=== PATIENT | female | born 1940 | race African-American/Black ===

== ENCOUNTER 2017-08-25 22:24 | Emergency (ER) | payer OTHER ==
[~2017-08-25] VITALS: Ht 154.9 cm; Wt 66.2 kg
[~2017-08-25 22:24] MED LIST: ALLO300T PO; ALPR0.5T6 PO; CLOT15CR5 TP; CYAN10002 IJ; DIAZ5TAB4 PO; ERGO500027 PO; ESOM40CA PO; FURO40TA4 PO; GLIM2TAB2 PO; HYDR1TAB10 PO; HYDROCORTISONE28 G1 TP; LATA2.5D3 OP; LEVO25TA4 PO; METO100T2 PO; MILN50TA PO; OLME1TAB23 PO; OXYC1TAB9 PO; POTA20PA21 PO; POTA20TA82 PO; SUCR1TAB PO; ZOLP10TA4 PO
--- NOTE | 2017-08-25 22:55 | PHYS DOC ---
Past Medical History Past Medical History: Anxiety, Depression, Diabetes-Type II, Fibromyalgia, GERD , Glaucoma, Hypertension, P.U.D. Additional Past Medical Histor: GOUT Past Surgical History: Hysterectomy Additional Past Surgical Histo: PARTIAL HSTERECTOMY, HERNIA REPAIR, COLON RESEC (1 FT PER PATIENT). Alcohol Use: None Drug Use: None Adult General Chief Complaint Chief Complaint: ABDOMINAL PAIN HPI HPI Patient is a 77 year old female who presents with since this morning mild to moderate nonradiating epigastric abdominal pain, nausea no vomiting no diarrhea. Reports some constipation but no black or bloody stools. Food does not make it worse. No prior history of abdominal pain similar to this. Patient's of insulin dependent diabetic and has had a cholecystectomy and hysterectomy. Review of Systems Review of Systems Constitutional: Denies fever or chills [] Eyes: Denies change in visual acuity, redness, or eye pain [] HENT: Denies nasal congestion or sore throat [] Respiratory: Denies cough or shortness of breath [] Cardiovascular: No additional information not addressed in HPI [] GI: Denies abdominal pain, nausea, vomiting, bloody stools or diarrhea [] : Denies dysuria or hematuria [] Musculoskeletal: Denies back pain or joint pain [] Integument: Denies rash or skin lesions [] Neurologic: Denies headache, focal weakness or sensory changes [] Endocrine: Denies polyuria or polydipsia [ Review systems are negative except as mentioned in history of present illness Current Medications Current Medications Current Medications Medications (Trade) Dose Ordered Sig/Ayala Start Time Stop Time Status Last Admin Dose Admin Famotidine (Pepcid) 20 mg 1X ONCE 08/25/17 23:30 08/25/17 23:31 DC 08/25/17 23:38 20 MG Hydromorphone HCl (Dilaudid) 0.5 mg 1X ONCE 08/25/17 23:15 08/25/17 23:16 DC 08/25/17 23:38 0.5 MG Info (Do NOT chart on this entry -- for MONITORING) 1 each PRN DAILY PRN 08/25/17 23:45 08/27/17 23:44 Iohexol (Omnipaque 300 Mg/ml) 75 ml 1X ONCE 08/25/17 23:45 08/25/17 23:46 DC Ondansetron HCl (Zofran) 4 mg 1X ONCE 08/25/17 23:15 08/25/17 23:16 DC 08/25/17 23:39 4 MG Sodium Chloride 500 ml @ 500 mls/hr 1X ONCE 08/25/17 23:15 08/26/17 00:14 DC 08/25/17 23:40 500 MLS/HR Allergies Allergies Allergies Coded Allergies Type Severity Reaction Last Updated Verified codeine Allergy Intermediate 07/04/17 Yes Physical Exam Physical Exam Constitutional: Well developed, well nourished, no acute distress, non-toxic appearance. [] HENT: Normocephalic, atraumatic, bilateral external ears normal, oropharynx moist, no oral exudates, nose normal. [] Eyes: PERRLA, EOMI, conjunctiva normal, no discharge. [] Neck: Normal range of motion, no tenderness, supple, no stridor. [] Cardiovascular:Heart rate regular rhythm, no murmur [] Lungs & Thorax: Bilateral breath sounds clear to auscultation [] Abdomen: Bowel sounds normal, soft, mild to moderate tenderness, no masses, no pulsatile masses. [] Skin: Warm, dry, no erythema, no rash. [] Back: No tenderness, no CVA tenderness. [] Extremities: No tenderness, no cyanosis, no clubbing, ROM intact, no edema. [] Neurologic: Alert and oriented X 3, normal motor function, normal sensory function, no focal deficits noted. [] Psychologic: Affect normal, judgement normal, mood normal. [] Current Patient Data Vital Signs Vital Signs Date Time Temp Pulse Resp B/P (MAP) Pulse Ox O2 Delivery O2 Flow Rate FiO2 08/26/17 01:14 80 20 124/58 (80) 97 Room Air 08/25/17 22:53 97.9 97.9 Lab Values Laboratory Tests Test 08/25/17 23:12 08/26/17 00:56 White Blood Count 7.9 x10^3/uL (4.0-11.0) Red Blood Count 4.24 x10^6/uL (3.50-5.40) Hemoglobin 12.6 g/dL (12.0-15.5) Hematocrit 38.0 % (36.0-47.0) Mean Corpuscular Volume 90 fL (79-100) Mean Corpuscular Hemoglobin 30 pg (25-35) Mean Corpuscular Hemoglobin Concent 33 g/dL (31-37) Red Cell Distribution Width 15.7 % (11.5-14.5) H Platelet Count 186 x10^3/uL (140-400) Neutrophils (%) (Auto) 64 % (31-73) Lymphocytes (%) (Auto) 26 % (24-48) Monocytes (%) (Auto) 5 % (0-9) Eosinophils (%) (Auto) 4 % (0-3) H Basophils (%) (Auto) 1 % (0-3) Neutrophils # (Auto) 5.0 x10^3uL (1.8-7.7) Lymphocytes # (Auto) 2.1 x10^3/uL (1.0-4.8) Monocytes # (Auto) 0.4 x10^3/uL (0.0-1.1) Eosinophils # (Auto) 0.3 x10^3/uL (0.0-0.7) Basophils # (Auto) 0.0 x10^3/uL (0.0-0.2) Sodium Level 140 mmol/L (136-145) Potassium Level 4.6 mmol/L (3.5-5.1) Chloride Level 97 mmol/L (98-107) L Carbon Dioxide Level 36 mmol/L (21-32) H Anion Gap 7 (6-14) Blood Urea Nitrogen 41 mg/dL (7-20) H Creatinine 1.5 mg/dL (0.6-1.0) H Estimated GFR (Cockcroft-Gault) 40.5 BUN/Creatinine Ratio 27 (6-20) H Glucose Level 113 mg/dL (70-99) H Calcium Level 9.7 mg/dL (8.5-10.1) Total Bilirubin 0.2 mg/dL (0.2-1.0) Aspartate Amino Transferase (AST) 60 U/L (15-37) H Alanine Aminotransferase (ALT) 49 U/L (14-59) Alkaline Phosphatase 94 U/L (46-116) Troponin I Quantitative < 0.017 ng/mL (0.000-0.055) Total Protein 7.7 g/dL (6.4-8.2) Albumin 3.5 g/dL (3.4-5.0) Albumin/Globulin Ratio 0.8 (1.0-1.7) L Lipase 262 U/L (73-393) Urine Collection Type Unknown Urine Color Yellow Urine Clarity Clear Urine pH 7.5 Urine Specific [place] 1.010 Urine Protein Negative mg/dL (NEG-TRACE) Urine Glucose (UA) Negative mg/dL (NEG) Urine Ketones (Stick) Negative mg/dL (NEG) Urine Blood Negative (NEG) Urine Nitrite Negative (NEG) Urine Bilirubin Negative (NEG) Urine Urobilinogen Dipstick 1.0 mg/dL (0.2 mg/dL) Urine Leukocyte Esterase Small (NEG) Urine RBC 0 /HPF (0-2) Urine WBC 5-10 /HPF (0-4) Urine Squamous Epithelial Cells Few /LPF Urine Bacteria 0 /HPF (0-FEW) Urine Mucus Slight /LPF Laboratory Tests 08/25/17 23:12 Laboratory Tests 08/25/17 23:12 EKG EKG EKG[ normal sinus rhythm rate of 83 no STEMI QTC normal my interpretation] Radiology/Procedures Radiology/Procedures Chest x-ray: Negative no acute pulmonary or cardiac abnormality seen my interpretation CT scan abdomen and pelvis: [] Course & Med Decision Making Course & Med Decision Making Pertinent Labs and Imaging studies reviewed. (See chart for details) []1:30 AM reexamination patient feels improved and is resting comfortably. Plan to place her on Prilosec and Carafate and recommend close follow-up in the next 2-3 days with her primary care physician. Dragon Disclaimer Dragon Disclaimer This electronic medical record was generated, in whole or in part, using a voice recognition dictation system. Departure Departure Impression: Primary Impression: Abdominal pain, acute, epigastric Disposition: 01 HOME, SELF-CARE Condition: IMPROVED Referrals: ALEXIS WILSON MD (PCP) Patient Instructions: Abdominal Pain Additional Instructions: Follow-up with her PCP in 2-3 days. Scripts Sucralfate (CARAFATE) 1 Gm Tablet 1 TAB PO QID, #60 TAB 0 Refills Prov: MATTEO BEACH MD 08/26/17 Omeprazole Magnesium (PRILOSEC OTC) 20 Mg Tablet. 20 MG PO DAILY, #10 TAB Prov: MATTEO BEACH MD 08/26/17 MATTEO BEACH MD Aug 25, 2017 22:55
[2017-08-25] MEDS ORDERED: ONDANSETRON PF 4 MG/2 ML VIAL. IV ONE (23:15)
[2017-08-25] MEDS ORDERED: HYDROmorphone 2 MG/ML VIAL IV ONE (23:15)
[2017-08-25] MEDS ORDERED: IV NORMAL SALINE 500ML BAG 500 ML IV ONE (23:15)
[2017-08-25 23:24] LABS: BASO % 1 % (0-3); EOS % 4 % (0-3); HEMOGLOBIN 12.6 g/dL (12.0-15.5); LYMPH # 2.1 x10^3/uL (1.0-4.8); LYMPH % 26 % (24-48); MEAN CORPUSCULAR HEMOGLOBIN 30 pg (25-35); MEAN CORPUSCULAR HGB CONC 33 g/dL (31-37); MEAN CORPUSCULAR VOLUME 90 fL (79-100); MONO % 5 % (0-9); NEUT % 64 % (31-73); PLATELET COUNT 186 x10^3/uL (140-400); RED BLOOD COUNT 4.24 x10^6/uL (3.50-5.40); RED CELL DISTRIBUTION WIDTH 15.7 % (11.5-14.5); WHITE BLOOD COUNT 7.9 x10^3/uL (4.0-11.0)
[2017-08-25] MEDS ORDERED: FAMOTIDINE 20 MG/2 ML VIAL IVP ONE (23:30)
[2017-08-25] MEDS ORDERED: CONTRAST GIVEN MC PRN (23:45)
[2017-08-25] MEDS ORDERED: IOHEXOL 300 MG/ML 75 ML VIAL IV ONE (23:45)
[2017-08-25 23:51] LABS: CALCIUM 9.7 mg/dL (8.5-10.1); CREATININE 1.5 mg/dL (0.6-1.0); GFR 40.5; POTASSIUM 4.6 mmol/L (3.5-5.1)
[2017-08-25 23:58] LABS: ALBUMIN 3.5 g/dL (3.4-5.0); ALBUMIN/GLOBULIN RATIO 0.8 (1.0-1.7); TOTAL BILIRUBIN 0.2 mg/dL (0.2-1.0); TOTAL PROTEIN 7.7 g/dL (6.4-8.2)
--- NOTE | 2017-08-26 00:57 | RAD ---
EXAM: Abdomen and pelvis CT without intravenous contrast. HISTORY: 77-year-old female with epigastric abdominal pain. TECHNIQUE: Computed tomographic images of the abdomen and pelvis were obtained without contrast. Multiplanar reformatting was performed. PQRS compliance statement: One or more of the following individualized dose reduction techniques were utilized for this examination: 1. Automated exposure control 2. Adjustment of the mA and/or kV according to patient size 3. Use of iterative reconstruction technique COMPARISON: None. FINDINGS: The lung bases demonstrate no acute finding. Several subcentimeter, noncalcified pulmonary nodules are seen within the visualized lung bases, largest measuring 4 mm. Findings of prior granulomatous disease also seen. Detailed evaluation of the intra-abdominal and pelvic organs and vascular structures is limited secondary to lack of IV contrast. Within these limitations, the liver, pancreas, adrenal glands and bilateral kidneys demonstrate no focal abnormality. The gallbladder is surgically absent. Calcifications are present with the spleen, consistent with prior granulomatous disease. The GI tract demonstrates no dilated bowel loops to suggest obstruction. The stomach is moderately distended with food material. Formed fecal material is present within the distal colon. The urinary bladder is grossly unremarkable. Uterus appears surgically absent. No adnexal mass is seen. No intra-abdominal or pelvic free fluid, free air or significant lymphadenopathy is seen. Aorta is normal in caliber, with atherosclerotic calcification present. Overlying soft tissues and visualized osseous structures demonstrate no acute or suspicious finding. Degenerative changes are seen throughout the spine, with chronic appearing endplate changes present. IMPRESSION: 1. No acute intra-abdominal or pelvic process seen on this noncontrast study. 2. Several subcentimeter pulmonary nodules are seen within the visualized lung bases. Recommend follow-up per Fleischner criteria. Fleischner Society recommendations for solid nodules (Radiology 2017): Single: In a low risk patient: <6mm - No routine follow up. >6-8mm-CT at 6-12 months, then consider CT at 18-24 months. >8mm- consider CT at 3 months, PET/CT or tissue sampling. In a high risk patient (history of smoking or other known risk factors): <6mm -optional CT at 12 months. >6-8mm-CT at 6-12 months, then CT at 18-24 months. >8mm-consider CT at 3 months, PET/CT or tissue sampling. Multiple: In a low risk patient: <6mm - No routine follow up. >6-8mm-CT at 3-6 months, then consider CT at 18-24 months. >8mm-CT at 3-6 months, then consider CT at 18-24 months. In a high risk patient (history of smoking or other known risk factors): <6mm -optional CT at 12 months. >6-8mm-CT at 3-6 months, then CT at 18-24 months. >8mm-CT in 3-6 months, then at 18-24 months. Electronically signed by: Tia Bowen MD (08/26/2017 12:54 AM) [facility]
[2017-08-26 01:04] LABS: BILIRUBIN,URINE NEGATIVE (NEG); GLUCOSE,URINE NEGATIVE (NEG); NITRITE,URINE NEGATIVE (NEG); PH,URINE 7.5; PROTEIN,URINE NEGATIVE (NEG-TRACE)
[2017-08-26 01:19] LABS: BACTERIA,URINE 0 /HPF (0-FEW); RBC,URINE 0 /HPF (0-2); SQUAMOUS EPITHELIAL CELL,UR FEW /LPF
[2017-08-26 01:30] VITALS: BP 124/58
[2017-08-26] MEDS ORDERED: OMEP20TA63 PO (01:34)
[2017-08-26] MEDS ORDERED: SUCR1TAB35 PO (01:34)
--- NOTE | 2017-08-26 07:58 | RAD ---
CHEST AP ONLY Clinical Indication: cough abd pain Comparison: Chest radiograph dated 01/22/2014 Findings: Stable lung volume with slight elevation of the right hemidiaphragm. Remote granulomatous disease. No focal consolidation. Stable pulmonary vasculature. No pleural effusion or pneumothorax. The cardiomediastinal silhouette is normal. Stable atherosclerotic thoracic aorta. No acute osseous abnormality. IMPRESSION: No acute cardiopulmonary process.
--- NOTE | 2017-08-26 12:10 | EKG ---
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
== END 2017-08-26 01:42 | disposition home or self-care (01) ==
LOC: ER 22:24
DX: R10.13 Epigastric pain (principal); R11.0 Nausea; K59.00 Constipation, unspecified; F41.9 Anxiety disorder, unspecified; F32.9 Major depressive disorder, single episode, unspecified; E11.39 Type 2 diabetes mellitus with other diabetic ophthalmic complication; H40.9 Unspecified glaucoma; M79.7 Fibromyalgia; K21.9 Gastro-esophageal reflux disease without esophagitis; I10 Essential (primary) hypertension; M10.9 Gout, unspecified; Z90.711 Acquired absence of uterus with remaining cervical stump; Z79.4 Long term (current) use of insulin; Z90.49 Acquired absence of other specified parts of digestive tract; Z88.5 Allergy status to narcotic agent
CPT/HCPCS: 36415; 71010; 74176; 80053; 81001; 83690; 84484; 85025; 87086; 93005; 96361; 96374; 96375; 99285; J1170; J2405; J7040; S0028

== ENCOUNTER 2018-03-18 09:21 | Emergency (ER) | payer OTHER ==
[2018-03-18 10:16] LABS: BILIRUBIN,URINE NEGATIVE (NEG); CLARITY,URINE CLEAR; COLOR,URINE YELLOW; GLUCOSE,URINE NEGATIVE (NEG); NITRITE,URINE NEGATIVE (NEG); PROTEIN,URINE NEGATIVE (NEG-TRACE); UROBILINOGEN,URINE 0.2 mg/dL (0.2 mg/dL)
[2018-03-18 10:37] LABS: SQUAMOUS EPITHELIAL CELL,UR FEW /LPF
[2018-03-18 10:38] LABS: BACTERIA,URINE FEW /HPF (0-FEW); RBC,URINE 0 /HPF (0-2)
[2018-03-18 10:43] LABS: ADD MAN DIFF? NO
[2018-03-18 10:45] LABS: BASO % 1 % (0-3); EOS # 0.2 x10^3/uL (0.0-0.7); EOS % 2 % (0-3); HEMOGLOBIN 11.6 g/dL (12.0-15.5); LYMPH # 2.9 x10^3/uL (1.0-4.8); LYMPH % 37 % (24-48); MEAN CORPUSCULAR HEMOGLOBIN 30 pg (25-35); MEAN CORPUSCULAR HGB CONC 34 g/dL (31-37); MEAN CORPUSCULAR VOLUME 88 fL (79-100); MONO # 0.5 x10^3/uL (0.0-1.1); MONO % 6 % (0-9); NEUT # 4.3 x10^3uL (1.8-7.7); NEUT % 55 % (31-73); PLATELET COUNT 188 x10^3/uL (140-400); RED BLOOD COUNT 3.85 x10^6/uL (3.50-5.40); RED CELL DISTRIBUTION WIDTH 15.5 % (11.5-14.5); WHITE BLOOD COUNT 7.9 x10^3/uL (4.0-11.0)
[2018-03-18] MEDS: ONDANSETRON PF 4 MG/2 ML VIAL. IV (10:47)
[2018-03-18] MEDS: fentaNYL PF VIAL 100 MCG/2 ML VIAL IV (10:48)
[2018-03-18 10:55] LABS: INR 1.1 (0.8-1.1); PROTHROMBIN TIME PATIENT 13.3 SEC (11.7-14.0)
[2018-03-18 10:58] LABS: ANION GAP 8 (6-14); BLOOD UREA NITROGEN 31 mg/dL (7-20); BUN/CREATININE RATIO 18 (6-20); CALCIUM 8.7 mg/dL (8.5-10.1); CARBON DIOXIDE 27 mmol/L (21-32); CHLORIDE 99 mmol/L (98-107); CREATININE 1.7 mg/dL (0.6-1.0); GLUCOSE 105 mg/dL (70-99); POTASSIUM 4.1 mmol/L (3.5-5.1); SODIUM 134 mmol/L (136-145)
[2018-03-18 11:04] LABS: ALBUMIN 3.9 g/dL (3.4-5.0); ALBUMIN/GLOBULIN RATIO 1.2 (1.0-1.7); TOTAL BILIRUBIN 0.5 mg/dL (0.2-1.0); TOTAL PROTEIN 7.1 g/dL (6.4-8.2)
[2018-03-18 11:05] LABS: ALK PHOS 82 U/L (46-116); ALT (SGPT) 10 U/L (14-59); AST (SGOT) 13 U/L (15-37); LIPASE 259 U/L (73-393); MAGNESIUM 2.1 mg/dL (1.8-2.4)
[2018-03-18 11:06] LABS: TROPONINI < 0.017 ng/mL (0.000-0.055)
[2018-03-18 11:11] LABS: THYROID STIM HORMONE (TSH) 3.814 uIU/mL (0.358-3.74)
[2018-03-18 11:14] LABS: CKMB INDEX 0.6 % (0-4); CKMB MASS 0.6 ng/mL (0.0-3.6); CREATINE KINASE 96 U/L (26-192)
[2018-03-18 11:14] LABS: NT-PRO BNP 374 pg/mL (0-449)
[2018-03-18] MEDS ORDERED: IV NORMAL SALINE 1000ML BAG 1,000 ML IV (11:15)
[2018-03-18] MEDS: IV NORMAL SALINE 1000ML BAG 500 ML IV (11:28)
== END 2018-03-18 12:12 | disposition home or self-care (01) ==
LOC: ER 09:21
DX: G89.29 Other chronic pain (principal); M79.7 Fibromyalgia; N39.0 Urinary tract infection, site not specified; F41.9 Anxiety disorder, unspecified; K21.9 Gastro-esophageal reflux disease without esophagitis; I10 Essential (primary) hypertension; Z88.5 Allergy status to narcotic agent; Z90.710 Acquired absence of both cervix and uterus
CPT/HCPCS: 36415; 71045; 80053; 81001; 82553; 83690; 83735; 83880; 84443; 84484; 85025; 85610; 93005; 96374; 96375; 99285-25; J2405; J3010; J7030

== ENCOUNTER 2019-05-03 12:10 | Emergency (ER) | payer MEDICARE, OTHER ==
[~2019-05-03] VITALS: Ht 162.6 cm; Wt 59.9 kg
[2019-05-03 12:10] VITALS: BP 109/77
[~2019-05-03 12:10] MED LIST changes: +HYDR-3164 PO; -METO100T2 PO; +METO100T7 PO; +NITR100C62 PO; +OMEP20TA63 PO; +OXYC-411 PO; -OXYC1TAB9 PO; +SUCR1TAB35 PO
[2019-05-03] MEDS ORDERED: NEOMY/BACITR/POLYMYXIN OINT PACKET. TP ONE (12:45)
[2019-05-03] MEDS ORDERED: DIPHTH,PERTUSS(ACELL),TET TOX 0.5 ML DISP.SYRIN. VAX IM ONE (12:45)
--- NOTE | 2019-05-03 13:09 | PHYS DOC ---
Past Medical History Past Medical History: Anxiety, Depression, Fibromyalgia, GERD, Glaucoma, Hypertension, P.U.D., TIA Additional Past Medical Histor: GOUT, thryoid disease, lower ext edema Past Surgical History: Hysterectomy Additional Past Surgical Histo: PARTIAL HSTERECTOMY, HERNIA REPAIR, COLON RESEC (1 FT PER PATIENT). Alcohol Use: None Drug Use: None Adult General Chief Complaint Chief Complaint: TOE PROBLEM HPI HPI Patient is a 79 year old AA female who presents to the ER with complaints of R great toe pain and bleeding. Pt states that on April, she accidentally kicked a piece of exercise equipment at her daughters and injured her toe. She denies any changes in sensation or limited ROM. Pt states the area began to bleed again when she removed the bandage earlier today. She is unsure of when her last tetanus shot was. Review of Systems Review of Systems Constitutional: Denies fever or chills [] Musculoskeletal: Denies back pain or joint pain [] Integument: Denies rash; see HPI Neurologic: Denies headache, focal weakness or sensory changes [] Current Medications Current Medications Current Medications Medications (Trade) Dose Ordered Sig/Ayala Start Time Stop Time Status Last Admin Dose Admin Diphtheria/ Tetanus/Acell Pertussis (Boostrix) 0.5 ml ONCE ONCE 05/03/19 12:45 05/03/19 12:46 DC 05/03/19 13:20 0.5 ML Neomycin/ Polymyxin/ Bacitracin (Triple Antibiotic Ointment) 1 pkt 1X ONCE 05/03/19 12:45 05/03/19 12:46 DC 05/03/19 13:20 1 PKT Allergies Allergies Allergies Coded Allergies Type Severity Reaction Last Updated Verified codeine Allergy Intermediate 07/04/17 Yes Physical Exam Physical Exam Constitutional: Well developed, well nourished, no acute distress, non-toxic appearance. [] HENT: Normocephalic, atraumatic, bilateral external ears normal, oropharynx moist, no oral exudates, nose normal. [] Eyes: conjunctiva normal, no discharge. [] Neck: Normal range of motion no stridor. [] Cardiovascular:Heart rate regular rhythm Lungs & Thorax: Respirations even and unlabored, no retractions, no respiratory distress Skin: Warm, dry, no erythema, no rash; abrasion noted to medial R great toe no active bleeding Extremities: R great toe No bony tenderness, no cyanosis, ROM intact, no edema. [] Neurologic: Alert and oriented X 3, normal motor function, normal sensory function, no focal deficits noted. [] Psychologic: Affect normal, judgement normal, mood normal. [] Current Patient Data Vital Signs Vital Signs Date Time Temp Pulse Resp B/P (MAP) Pulse Ox O2 Delivery O2 Flow Rate FiO2 05/03/19 12:10 98.6 78 18 109/77 (88) 96 Room Air 98.6 EKG EKG [] Radiology/Procedures Radiology/Procedures [] Course & Med Decision Making Course & Med Decision Making Pertinent Labs and Imaging studies reviewed. (See chart for details) [] Dragon Disclaimer Dragon Disclaimer This electronic medical record was generated, in whole or in part, using a voice recognition dictation system. Departure Departure Impression: Primary Impression: Abrasion, toe w/o infection Additional Impression: Need for DTaP vaccination Disposition: HOME, SELF-CARE Condition: STABLE Referrals: ALEXIS WILSON MD (PCP) Patient Instructions: Abrasion, [id number], VIS, Tetanus, Diphtheria (Td); Tetanus, Diphtheria, Pertussis (Tdap) - CDC Additional Instructions: Keep area clean and dry. Apply antibiotic ointment and a clean bandage twice daily. Follow up with PCP as needed, return to ER if symptoms worsen. Problem Qualifiers BETZAIDA VALDEZ APRN May 03, 2019 13:09
== END 2019-05-03 13:30 | disposition home or self-care (01) ==
LOC: ER 12:10
DX: S90.411A Abrasion, right great toe, initial encounter (principal); F41.9 Anxiety disorder, unspecified; F32.9 Major depressive disorder, single episode, unspecified; K21.9 Gastro-esophageal reflux disease without esophagitis; I10 Essential (primary) hypertension; Z90.710 Acquired absence of both cervix and uterus; Z86.73 Personal history of transient ischemic attack (TIA), and cerebral infarction without residual deficits; Z88.5 Allergy status to narcotic agent; W22.8XXA Striking against or struck by other objects, initial encounter; Y93.89 Activity, other specified; Y92.89 Other specified places as the place of occurrence of the external cause; Y99.8 Other external cause status
CPT/HCPCS: 90471; 90715; 99283

== ENCOUNTER 2019-08-07 16:07 | Inpatient (IN) | payer MEDICARE, OTHER ==
[~2019-08-07] VITALS: Ht 154.9 cm; Wt 71.9 kg
[~2019-08-07 16:07] MED LIST changes: -GLIM2TAB2 PO; +GLIM2TAB3 PO
[2019-08-07 18:00] VITALS: BP 112/62
[2019-08-07] MEDS ORDERED: ALBUTEROL SULFATE 2.5 MG/3 ML NEBU. NEB PRN (19:15)
[2019-08-07] MEDS ORDERED: CLOTRIMAZOLE/BETAMETH 1%-0.05% TOPICAL CREAM 15GM TUBE. TP PRN (19:45)
[2019-08-07] MEDS ORDERED: SUCRALFATE 1 GM TABLET. PO PRN (19:45)
[2019-08-07] MEDS ORDERED: 0.9 % SODIUM CHLORIDE 10 ML DISP.SYRIN. IV PRN (20:00)
[2019-08-07] MEDS: LATANOPROST 0.005% OPHTH SOLUTION 2.5ML BOTTLE. OU SCH (20:54)
[2019-08-07] MEDS: PREGABALIN 75 MG CAPSULE PO SCH (20:55)
[2019-08-07] MEDS: ATORVASTATIN CALCIUM 20 MG TABLET PO SCH (20:56)
[2019-08-07] MEDS: PROPRANOLOL 40 MG TABLET. PO SCH (20:56)
[2019-08-07] MEDS: oxyCODONE/APAP 10/325 1 TAB TABLET PO PRN (20:57)
[2019-08-07] MEDS ORDERED: FUROSEMIDE 40 MG/4 ML VIAL. IVP SCH (21:00)
[2019-08-07] MEDS: IPRATRPIUM/ALBUTEROL 0.5/2.5MG 3 ML NEBU. NEB SCH (21:18)
--- NOTE | 2019-08-07 21:21 | EKG ---
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
--- NOTE | 2019-08-07 21:38 | RAD ---
VENOUS LOWER EXT BILATERAL History: Bilateral leg pain and swelling. Comparison: None. Discussion: Multiple longitudinal and transverse high resolution real-time images of the venous system of bilateral lower extremity were obtained with color and Doppler sampling. The common femoral, superficial femoral, popliteal and proximal calf veins are all patent and demonstrate normal flow and compressibility. Normal respiratory phasicity and augmentation is present. Lateral origin of the right greater saphenous vein. Left popliteal fossa cyst measures 4.9 x 1.4 x 0.8 cm. Impression: 1. No evidence of deep vein thrombosis. Electronically signed by: Lee Guerrero DO (08/07/2019 9:35 PM) [facility]
[2019-08-07 22:21] VITALS: BP 107/70
[2019-08-07] MEDS: ENOXAPARIN 30 MG/0.3 ML SYRINGE. SQ SCH (22:25)
[2019-08-07 22:35] LABS: ALBUMIN/GLOBULIN RATIO 1.1 (1.0-1.7); CALCIUM 9.4 mg/dL (8.5-10.1); CREATININE 1.8 mg/dL (0.6-1.0); GFR 32.7; POTASSIUM 3.7 mmol/L (3.5-5.1); TOTAL BILIRUBIN 0.4 mg/dL (0.2-1.0); TOTAL PROTEIN 7.7 g/dL (6.4-8.2)
[2019-08-08] MEDS ORDERED: ATOR20TA58 PO (00:46)
[2019-08-08] MEDS ORDERED: FLUT16SP NS (00:46)
[2019-08-08] MEDS ORDERED: PROP10DR3 EACHEYE (00:46)
[2019-08-08] MEDS ORDERED: ERGO500027 PO (00:46)
[2019-08-08] MEDS ORDERED: LEVO75TA5 PO (00:46)
[2019-08-08] MEDS ORDERED: PROP40TA PO (00:46)
[2019-08-08] MEDS ORDERED: OXYC1TAB22 PO (00:46)
[2019-08-08] MEDS ORDERED: ASPI325T8 PO (00:46)
[2019-08-08] MEDS ORDERED: POTA20TA82 PO (00:46)
[2019-08-08] MEDS ORDERED: PREG75CA PO (00:46)
[2019-08-08] MEDS ORDERED: FURO40TA4 PO (00:46)
[2019-08-08 03:11] VITALS: BP 114/59
[2019-08-08 04:37] LABS: BASO % 0 % (0-3); EOS # 0.2 x10^3/uL (0.0-0.7); EOS % 3 % (0-3); HEMATOCRIT 33.8 % (36.0-47.0); HEMOGLOBIN 11.2 g/dL (12.0-15.5); LYMPH # 3.1 x10^3/uL (1.0-4.8); LYMPH % 49 % (24-48); MEAN CORPUSCULAR HEMOGLOBIN 28 pg (25-35); MEAN CORPUSCULAR HGB CONC 33 g/dL (31-37); MEAN CORPUSCULAR VOLUME 85 fL (79-100); MONO # 0.5 x10^3/uL (0.0-1.1); MONO % 8 % (0-9); NEUT # 2.6 x10^3/uL (1.8-7.7); NEUT % 40 % (31-73); PLATELET COUNT 157 x10^3/uL (140-400); RED BLOOD COUNT 3.96 x10^6/uL (3.50-5.40); WHITE BLOOD COUNT 6.4 x10^3/uL (4.0-11.0)
[2019-08-08 05:25] LABS: CALCIUM 8.9 mg/dL (8.5-10.1); CREATININE 1.6 mg/dL (0.6-1.0); GFR 37.4; POTASSIUM 3.6 mmol/L (3.5-5.1)
[2019-08-08] MEDS: LEVOTHYROXINE 75 MCG TABLET PO SCH (06:06)
[2019-08-08 07:00] VITALS: BP 98/49
--- NOTE | 2019-08-08 07:55 | RAD ---
EXAM: AP View of the chest DATE: 08/07/2019 9:13 PM INDICATION: Shortness of breath, bilateral lower extremity swelling COMPARISON: 03/18/2018, 08/25/2017 FINDINGS: Heart is mildly enlarged. Atherosclerotic calcifications of the aorta are seen. Right infrahilar and minimal bibasilar airspace opacities may represent atelectasis although developing consolidation would have similar appearance. No pleural effusion or pneumothorax. Right glenohumeral joint osteoarthritis. Electronically signed by: Torres Del Castillo MD (08/08/2019 7:52 AM) [facility] [place]
[2019-08-08] MEDS ORDERED: FLU VAX QS 2019-20 (36MOS+)/PF 0.5 ML SYRINGE. VAX IM ONE (08:00)
[2019-08-08] MEDS: IPRATRPIUM/ALBUTEROL 0.5/2.5MG 3 ML NEBU. NEB SCH ×4 (08:55→20:30)
[2019-08-08] MEDS: FLUTICASONE 50MCG/NASAL SPRAY 16GM BOTTLE. NS SCH (09:00)
[2019-08-08] MEDS: PANTOPRAZOLE 40 MG TABLET.DR. PO SCH (09:50)
[2019-08-08] MEDS: ASPIRIN 325 MG TABLET PO SCH (09:52)
[2019-08-08] MEDS: PREGABALIN 75 MG CAPSULE PO SCH ×2 (09:52→21:06)
[2019-08-08] MEDS: ALLOPURINOL 300 MG TABLET. PO SCH (09:53)
[2019-08-08] MEDS: PROPRANOLOL 40 MG TABLET. PO SCH ×3 (09:57→21:06)
--- NOTE | 2019-08-08 09:57 | PDOC ---
Provider Note Provider Note pt seen.H&P to be dictated. ALEXIS WILSON MD Aug 08, 2019 09:57
[2019-08-08] MEDS ORDERED: POTASSIUM CHLORIDE 20 MEQ TABLET.ER. PO ONE (10:00)
[2019-08-08 11:00] VITALS: BP 129/65
[2019-08-08] MEDS: oxyCODONE/APAP 10/325 1 TAB TABLET PO PRN (11:53)
--- NOTE | 2019-08-08 11:56 | NUR ---
pt states that she would like to wait to receive her flu shot until she leaves.
--- NOTE | 2019-08-08 13:27 | RAD ---
EXAM: CT Chest without IV contrast CLINICAL HISTORY: Lung infiltrate COMPARISON: Chest radiograph 08/07/2019 TECHNIQUE: CT of the chest without intravenous contrast. Axial, coronal and sagittal reformatted images were generated. ---PQRS compliance statement - One or more of the following individualized dose reduction techniques were utilized for this study: 1. Automated exposure control 2. Adjustment of the mA and/or kV according to patient size 3. Use of iterative reconstruction technique--- FINDINGS: Lack of intravenous contrast limits evaluation of solid organs, vasculature, and lymph nodes. Chest: Heart is not enlarged. No pericardial effusion. Ascending aorta measures 3.7 cm in diameter Calcified mediastinal and right hilar lymph nodes are seen. Within the constraints of this noncontrast examination, no thoracic lymphadenopathy. No pleural effusion or pneumothorax. Mild groundglass opacities in the infrahilar left lower lobe and lingula are nonspecific and may represent atelectasis. Several small 3-4 mm lung nodules are seen bilaterally for example right lower lobe (series 2 image 25), left lower lobe series 2 image 26) Visualized Upper abdomen: Cholecystectomy clips are seen. Calcified granuloma within the liver and spleen. Bones: Osseous structures are unremarkable. IMPRESSION: 1. Vague groundglass opacities are seen particularly prominent in the left lower lobe and lingula. Differential remains broad including infectious/inflammatory process although atelectasis is a primary consideration. 2. Bilateral <4 mm lung nodules. Per Fleischner Society guidelines for incidentally found solid nodules measuring less than 6 mm, no follow-up is necessary if patient is considered at low risk for lung cancer. If patient is considered to be at high risk, such as with history of smoking, then CT follow-up in about 12 months can be considered. Electronically signed by: Torres Del Castillo MD (08/08/2019 1:24 PM) [facility]
--- NOTE | 2019-08-08 14:59 | PDOC2 ---
CONSULT Date of Consult Date of Consult DATE: 08/08/19 TIME: 14:52 Reason for Consult Reason for Consult: Lower extremity swelling Referring Physician Referring Physician: Dr. Miller Identification/Chief Complaint Chief Complaint Lower extremity swelling Source Source: Chart review, Patient History of Present Illness Reason for Visit: The patient is an 79-year-old female who reports 3-4 days of gradually increasing lower extremity swelling. The patient was seen in her primary physician's office yesterday and then transferred to [facility] as a direct admission. She was treated over night with Lasix and her swelling has improved. Initial testing today shows a lower extremity ultrasound study that showed no DVT. Chest x-ray shows mild cardiomegaly. A CT scan of the chest showed a groundglass opacities of the left lower lobe. The patient reports feeling better this morning. She denies chest pain or shortness of breath. Her lower extremity swelling has significantly improved. She denies a history of coronary disease, congestive heart failure or cardiac arrhythmias. However she does have a history of hypertension, hyperlipidemia and diabetes. Past Medical History Cardiovascular: HTN, Hyperlipidemia CENTRAL NERVOUS SYSTEM: TIA GI: GERD Musculoskeletal: low back pain Rheumatologic: Fibromyalgia Endocrine: Diabetes Past Surgical History Past Surgical History: Breast Biopsy, Cholecystectomy, Hysterectomy Family History Family History: Hypertension Social History No ALCOHOL: none Drugs: None Current Medications Current Medications Current Medications Furosemide (Lasix) 40 mg BID92 IVP Last administered on 08/07/19at 20:54; Start 08/07/19 at 21:00; Stop 08/08/19 at 09:57; Status DC Albuterol/ Ipratropium (Duoneb) 3 ml RTQID NEB Last administered on 08/08/19at 12:11; Start 08/07/19 at 20:00 Albuterol Sulfate (Ventolin Neb Soln) 2.5 mg PRN Q4HRS PRN NEB SHORTNESS OF BREATH; Start 08/07/19 at 19:15 Oxycodone/ Acetaminophen (Percocet 10/325) 1 tab PRN Q12HRS PRN PO MODERATE P AIN Last administered on 08/08/19at 11:53; Start 08/07/19 at 19:45 Sucralfate (Carafate) 1 gm PRN BID PRN PO UPSET STOMACH; Start 08/07/19 at 19:45 Betamethasone/ Clotrimazole (Lotrisone) 1 marissa PRN BID PRN TP DRY SKIN / SCALING Last administered on 08/08/19 09:47; Start 08/07/19 at 19:45 Propranolol HCl (Inderal) 40 mg TID PO Last administered on 08/08/19 09:57; Start 08/07/19 at 21:00 Pantoprazole Sodium (Protonix) 40 mg DAILYAC PO Last administered on 08/08/19at 09:50; Start 08/08/19 at 07:30 Ergocalciferol (Vitamin D2) 50,000 unit WEEKLY PO ; Start 08/13/19 at 09:00 Aspirin (Zia Aspirin) 325 mg DAILYWBKFT PO Last administered on 08/08/19 09:52; Start 08/08/19 at 08:00 Atorvastatin Calcium (Lipitor) 20 mg QHS PO Last administered on 08/07/19 20:56; Start 08/07/19 at 21:00 Latanoprost (Xalatan) 1 drop QHS OU Last administered on 08/07/19 20:54; Start 08/07/19 at 21:00 Pregabalin (Lyrica) 75 mg BID PO Last administered on 08/08/19 09:52; Start 08/07/19 at 21:00 Fluticasone Propionate (Flonase) 2 spray DAILY NS ; Start 08/08/19 at 09:00 Allopurinol (Zyloprim) 300 mg DAILY PO Last administered on 08/08/19 09:53; Start 08/08/19 at 09:00 Levothyroxine Sodium (Synthroid) 75 mcg DAILY06 PO Last administered on 08/08/19at 06:06; Start 08/08/19 at 06:00 Sodium Chloride (Normal Saline Flush) 3 ml PRN DAILY PRN IV AFTER MEDS AND BLOOD DRAWS; Start 08/07/19 at 20:00 Enoxaparin Sodium (Lovenox 30mg Syringe) 30 mg Q24H SQ Last administered on 08/07/19at 22:25; Start 08/07/19 at 22:00 Influenza Virus Vaccine Quadrival (Afluria Quad 2019-20 (3yr Up) Syringe) 0.5 ml ONCE ONCE VAX IM ; Start 08/08/19 at 08:00; Stop 08/08/19 at 08:01; Status DC Furosemide (Lasix) 40 mg DAILY IVP ; Start 08/09/19 at 09:00 Potassium Chloride (Klor-Con) 20 meq 1X ONCE PO Last administered on 08/08/19at 10:48; Start 08/08/19 at 10:00; Stop 08/08/19 at 10:06; Status DC Potassium Chloride (Klor-Con) 20 meq DAILYWBKFT PO ; Start 08/09/19 at 08:00 Active Scripts Active Macrobid 100 Mg Capsule (Nitrofurantoin Monohyd/M-Cryst) 100 Mg Capsule 1 Cap PO BID 7 Days [place] 5-325 Tablet (Acetaminophen/Hydrocodone Bitart) 1 Each Tablet 1 Tab PO BID 3 Days Carafate (Sucralfate) 1 Gm Tablet 1 Tab PO QID Prilosec Otc (Omeprazole Magnesium) 20 Mg Tablet.dr 20 Mg PO DAILY Reported Furosemide 40 Mg Tablet 1 Tab PO DAILY Propranolol Hcl 40 Mg Tablet 1 Tab PO TID Potassium Chloride 20 Meq Tablet.er 1 Tab PO DAILY 30 Days Fluticasone Propionate Nasal [place] (Fluticasone Propionate) 16 Gm [place].susp 1 [place] NS BID Levothyroxine Sodium 75 Mcg Tablet 1 Tab PO DAILY Lyrica (Pregabalin) 75 Mg Capsule 1 Cap PO BID Atorvastatin Calcium 20 Mg Tablet 1 Tab PO DAILY Aspirin 325 Mg Tablet 1 Tab PO DAILY Vitamin D2 (Ergocalciferol (Vitamin D2)) 50,000 Unit Capsule 1 Cap PO WEEKLY 28 Days Systane Ultra 0.4-0.3% Eye Drp (Propylene Glycol/Peg 400) 10 Ml Drops 1 Drop EACHEYE PRN DAILY PRN Percocet 10-325 Mg Tablet (Oxycodone/Acetaminophen) 1 Each Tablet 1 Tab PO PRN Q12HR PRN MDD 2 Tablet(s) 5 Days Clotrimazole-Betamethasone Crm (Clotrimazole/Betamethasone Dip) 15 Gm Cream..g. 1 Marissa TP BID Latanoprost 2.5 Ml Drops 2.5 Ml OP QHS Allopurinol 300 Mg Tablet 300 Mg PO DAILY Allergies Allergies: Coded Allergies: codeine (Verified Allergy, Intermediate, 07/04/17) ROS General: YES: Fatigue Musculoskeletal: Yes Other (lower extremity swelling) Physical Exam General: No acute distress HEENT: Atraumatic Lungs: Other (slightly decreased breath sounds) Heart: Regular rate Abdomen: Normal bowel sounds Extremities: Other (+1 edema bilaterally) Vitals VITALS Vital Signs Date Time Temp Pulse Resp B/P (MAP) Pulse Ox O2 Delivery O2 Flow Rate FiO2 08/08/19 12:53 96 Room Air 08/08/19 11:00 92 18 129/65 (86) 08/08/19 07:00 97.5 97.5 Labs Labs Laboratory Tests Test 08/07/19 20:53 08/07/19 22:00 08/08/19 03:30 08/08/19 07:14 Glucose (Fingerstick) 126 mg/dL (70-99) 154 mg/dL (70-99) Sodium Level 147 mmol/L (136-145) 144 mmol/L (136-145) Potassium Level 3.7 mmol/L (3.5-5.1) 3.6 mmol/L (3.5-5.1) Chloride Level 104 mmol/L (98-107) 104 mmol/L (98-107) Carbon Dioxide Level 33 mmol/L (21-32) 30 mmol/L (21-32) Anion Gap 10 (6-14) 10 (6-14) Blood Urea Nitrogen 41 mg/dL (7-20) 40 mg/dL (7-20) Creatinine 1.8 mg/dL (0.6-1.0) 1.6 mg/dL (0.6-1.0) Estimated GFR (Cockcroft-Gault) 32.7 37.4 BUN/Creatinine Ratio 23 (6-20) Glucose Level 98 mg/dL (70-99) 121 mg/dL (70-99) Calcium Level 9.4 mg/dL (8.5-10.1) 8.9 mg/dL (8.5-10.1) Total Bilirubin 0.4 mg/dL (0.2-1.0) Aspartate Amino Transf (AST/SGOT) 18 U/L (15-37) Alanine Aminotransferase (ALT/SGPT) 18 U/L (14-59) Alkaline Phosphatase 110 U/L (46-116) TH-Lyb-Q-Type Natriuretic Peptide 61 pg/mL (0-449) Total Protein 7.7 g/dL (6.4-8.2) Albumin 4.0 g/dL (3.4-5.0) Albumin/Globulin Ratio 1.1 (1.0-1.7) White Blood Count 6.4 x10^3/uL (4.0-11.0) Red Blood Count 3.96 x10^6/uL (3.50-5.40) Hemoglobin 11.2 g/dL (12.0-15.5) Hematocrit 33.8 % (36.0-47.0) Mean Corpuscular Volume 85 fL (79-100) Mean Corpuscular Hemoglobin 28 pg (25-35) Mean Corpuscular Hemoglobin Concent 33 g/dL (31-37) Red Cell Distribution Width 17.0 % (11.5-14.5) Platelet Count 157 x10^3/uL (140-400) Neutrophils (%) (Auto) 40 % (31-73) Lymphocytes (%) (Auto) 49 % (24-48) Monocytes (%) (Auto) 8 % (0-9) Eosinophils (%) (Auto) 3 % (0-3) Basophils (%) (Auto) 0 % (0-3) Neutrophils # (Auto) 2.6 x10^3/uL (1.8-7.7) Lymphocytes # (Auto) 3.1 x10^3/uL (1.0-4.8) Monocytes # (Auto) 0.5 x10^3/uL (0.0-1.1) Eosinophils # (Auto) 0.2 x10^3/uL (0.0-0.7) Basophils # (Auto) 0.0 x10^3/uL (0.0-0.2) Troponin I Quantitative < 0.017 ng/mL (0.000-0.055) Lipase 95 U/L (73-393) Test 08/08/19 12:24 Glucose (Fingerstick) 124 mg/dL (70-99) Laboratory Tests Test 08/07/19 20:53 08/07/19 22:00 08/08/19 03:30 08/08/19 07:14 Glucose (Fingerstick) 126 mg/dL (70-99) 154 mg/dL (70-99) Sodium Level 147 mmol/L (136-145) 144 mmol/L (136-145) Potassium Level 3.7 mmol/L (3.5-5.1) 3.6 mmol/L (3.5-5.1) Chloride Level 104 mmol/L (98-107) 104 mmol/L (98-107) Carbon Dioxide Level 33 mmol/L (21-32) 30 mmol/L (21-32) Anion Gap 10 (6-14) 10 (6-14) Blood Urea Nitrogen 41 mg/dL (7-20) 40 mg/dL (7-20) Creatinine 1.8 mg/dL (0.6-1.0) 1.6 mg/dL (0.6-1.0) Estimated GFR (Cockcroft-Gault) 32.7 37.4 BUN/Creatinine Ratio 23 (6-20) Glucose Level 98 mg/dL (70-99) 121 mg/dL (70-99) Calcium Level 9.4 mg/dL (8.5-10.1) 8.9 mg/dL (8.5-10.1) Total Bilirubin 0.4 mg/dL (0.2-1.0) Aspartate Amino Transf (AST/SGOT) 18 U/L (15-37) Alanine Aminotransferase (ALT/SGPT) 18 U/L (14-59) Alkaline Phosphatase 110 U/L (46-116) IU-Oul-Y-Type Natriuretic Peptide 61 pg/mL (0-449) Total Protein 7.7 g/dL (6.4-8.2) Albumin 4.0 g/dL (3.4-5.0) Albumin/Globulin Ratio 1.1 (1.0-1.7) White Blood Count 6.4 x10^3/uL (4.0-11.0) Red Blood Count 3.96 x10^6/uL (3.50-5.40) Hemoglobin 11.2 g/dL (12.0-15.5) Hematocrit 33.8 % (36.0-47.0) Mean Corpuscular Volume 85 fL (79-100) Mean Corpuscular Hemoglobin 28 pg (25-35) Mean Corpuscular Hemoglobin Concent 33 g/dL (31-37) Red Cell Distribution Width 17.0 % (11.5-14.5) Platelet Count 157 x10^3/uL (140-400) Neutrophils (%) (Auto) 40 % (31-73) Lymphocytes (%) (Auto) 49 % (24-48) Monocytes (%) (Auto) 8 % (0-9) Eosinophils (%) (Auto) 3 % (0-3) Basophils (%) (Auto) 0 % (0-3) Neutrophils # (Auto) 2.6 x10^3/uL (1.8-7.7) Lymphocytes # (Auto) 3.1 x10^3/uL (1.0-4.8) Monocytes # (Auto) 0.5 x10^3/uL (0.0-1.1) Eosinophils # (Auto) 0.2 x10^3/uL (0.0-0.7) Basophils # (Auto) 0.0 x10^3/uL (0.0-0.2) Troponin I Quantitative < 0.017 ng/mL (0.000-0.055) Lipase 95 U/L (73-393) Test 08/08/19 12:24 Glucose (Fingerstick) 124 mg/dL (70-99) Images Images Imaging as above. Assessment/Plan Assessment/Plan 1. Lower extremity swelling. Significantly improved after treatment overnight. Lower extremity ultrasound shows no DVT. It does show a left popliteal fossa cyst. Patient denies chest pain or shortness of breath. At this time would continue present treatment. We'll check an echocardiogram. 2. Hypertension. Reasonable control this morning. Continue present treatment. 3. Hyperlipidemia. We'll continue statin and check lab. 4. Diabetes mellitus. As per the patient's primary service. 5. Possible history of chronic kidney disease. Monitoring lab. 6. History of chronic back pain. Patient states it has improved over the past several months. Thank you for allowing us to participate in the care of your patient. MADI HERNANDEZ MD Aug 08, 2019 14:59
[2019-08-08 15:00] VITALS: BP 118/70
--- NOTE | 2019-08-08 15:16 | NUR ---
SS following for dischargee cinthya. SS reviewed pt chart. Pt is from home and is currently on room air. Pt was previously on services with [facility], ; fax [phone]. SS will continue to follow for discharge planning.
[2019-08-08 19:58] VITALS: BP 117/59
[2019-08-08] MEDS: LATANOPROST 0.005% OPHTH SOLUTION 2.5ML BOTTLE. OU SCH (21:06)
[2019-08-08] MEDS: ATORVASTATIN CALCIUM 20 MG TABLET PO SCH (21:06)
[2019-08-08] MEDS: ENOXAPARIN 30 MG/0.3 ML SYRINGE. SQ SCH (21:07)
[2019-08-08 23:06] VITALS: BP 115/53
[2019-08-09 00:07] LABS: HEMOGLOBIN A1C 6.8 % (4.8-5.6)
[2019-08-09 03:13] VITALS: BP 118/62
[2019-08-09] MEDS: LEVOTHYROXINE 75 MCG TABLET PO SCH (06:23)
[2019-08-09 07:00] VITALS: BP 112/68
[2019-08-09] MEDS: IPRATRPIUM/ALBUTEROL 0.5/2.5MG 3 ML NEBU. NEB SCH ×2 (07:49→11:14)
[2019-08-09] MEDS ORDERED: POTASSIUM CHLORIDE 20 MEQ TABLET.ER. PO SCH ×3 (08:00→18:00)
[2019-08-09] MEDS: oxyCODONE/APAP 10/325 1 TAB TABLET PO PRN (08:57)
[2019-08-09] MEDS: ALLOPURINOL 300 MG TABLET. PO SCH (08:58)
[2019-08-09] MEDS: PREGABALIN 75 MG CAPSULE PO SCH (08:58)
[2019-08-09] MEDS: ASPIRIN 325 MG TABLET PO SCH (08:58)
[2019-08-09] MEDS: PROPRANOLOL 40 MG TABLET. PO SCH ×2 (08:58→13:54)
[2019-08-09] MEDS: PANTOPRAZOLE 40 MG TABLET.DR. PO SCH (08:58)
[2019-08-09] MEDS: FLUTICASONE 50MCG/NASAL SPRAY 16GM BOTTLE. NS SCH (09:00)
[2019-08-09] MEDS ORDERED: FUROSEMIDE 40 MG/4 ML VIAL. IVP SCH (09:00)
[2019-08-09 09:17] LABS: CALCIUM 9.2 mg/dL (8.5-10.1); CREATININE 1.4 mg/dL (0.6-1.0); GFR 43.7; POTASSIUM 3.5 mmol/L (3.5-5.1)
[2019-08-09 09:19] LABS: CHOLESTEROL/HDL RATIO 2.3
[2019-08-09] MEDS ORDERED: TORS20TA2 PO (09:54)
[2019-08-09] MEDS ORDERED: POTA20TA82 PO (09:54)
--- NOTE | 2019-08-09 09:59 | DISCH ---
DISCHARGE INSTRUCTIONS Condition on Discharge Condition on Discharge: Stable Activity After Discharge Activity Instructions for Disc: Activity as tolerated Diet after Discharge Diet after Discharge: Cardiac Diet Texture: Regular Liquid Texture: Thin Liquid Contacting the DRJeremy after DC Call your doctor for: Concerns you may have Follow-Up Follow up with: in 3 days on Sunday DIDIER FOSTER MD Aug 09, 2019 09:59
--- NOTE | 2019-08-09 10:25 | PDOC ---
IM PROGRESS NOTES- Subjective Subjective Complains of bilateral lower extremity pain. Objective Vitals/I&O Vital Signs Date Time Temp Pulse Resp B/P (MAP) Pulse Ox O2 Delivery O2 Flow Rate FiO2 08/09/19 10:05 100 Room Air 08/09/19 08:58 78 112/68 08/09/19 07:00 97.8 16 97.8 I & O 08/08/19 08/08/19 08/09/19 14:59 22:59 06:59 Intake Total 318 ml 600 ml Balance 318 ml 600 ml Physical Exam Physical Exam General appearance - alert,well appearing, and in no distress and oriented to person, place, and time Mental Status - alert, oriented to person, place, and time, affect appropriate to mood Head - normal Chest - clear to auscultation, no wheezes, rales or rhonchi, symmetric air entry Heart - S1 and S2 normal Abdomen - soft, nontender, nondistended, no masses or organomegaly Neurological - alert and oriented Musculoskeletal -has pain in both knees with movement. Extremities -trace edema. She has a left popliteal cyst Skin - warm and dry Labs Laboratory Tests Test 08/08/19 12:24 08/08/19 17:22 08/08/19 20:46 08/09/19 08:02 Glucose (Fingerstick) 124 mg/dL (70-99) H 135 mg/dL (70-99) H 146 mg/dL (70-99) H 127 mg/dL (70-99) H Test 08/09/19 08:20 Sodium Level 145 mmol/L (136-145) Potassium Level 3.5 mmol/L (3.5-5.1) Chloride Level 108 mmol/L (98-107) H Carbon Dioxide Level 29 mmol/L (21-32) Anion Gap 8 (6-14) Blood Urea Nitrogen 31 mg/dL (7-20) H Creatinine 1.4 mg/dL (0.6-1.0) H Estimated GFR (Cockcroft-Gault) 43.7 Glucose Level 126 mg/dL (70-99) H Calcium Level 9.2 mg/dL (8.5-10.1) Triglycerides Level 71 mg/dL (0-150) Cholesterol Level 81 mg/dL (0-200) LDL Cholesterol, Calculated 32 mg/dL (0-100) VLDL Cholesterol, Calculated 14 mg/dL (0-40) Non-HDL Cholesterol Calculated 46 mg/dL (0-129) HDL Cholesterol 35 mg/dL (40-60) L Cholesterol/HDL Ratio 2.3 Thyroid Stimulating Hormone (TSH) 0.981 uIU/mL (0.358-3.74) Laboratory Tests 08/09/19 08:20 Meds Current Medications Medications (Trade) Dose Ordered Sig/Ayala Route PRN Reason Start Time Stop Time Status Last Admin Dose Admin Furosemide (Lasix) 40 mg DAILY IVP 08/09/19 09:00 08/09/19 09:43 DC 08/09/19 09:00 Potassium Chloride (Klor-Con) 20 meq DAILYWBKFT PO 08/09/19 08:00 08/09/19 09:43 DC 08/09/19 08:59 Assessment Assessment Hypertension with chronic kidney disease stage III Diabetes mellitus Arthritis of both knees Fluid retention- multifactorial. BNP was only 61 on admission. She is advised to wear compression stockings. I will discontinue Lasix as it is not effective and change it to Demadex. Some of the swelling may be due to venous insufficiency as well as left popliteal cyst. Echocardiogram is pending. Findings extensively discussed with the patient. I advised her to decrease fluid intake and salt intake. Discharged on Demadex 20 mg twice a day and potassium chloride 20 mEq twice a day with food. See Dr. Miller in the office in 3 days so labs can be checked and medications adjusted. Left popliteal cyst- I advised her to see Dr. Gooden as outpatient for further management. She previously had the surgery for the right popliteal cyst. Discharge home. Discharge management 35 minutes. Plan Plan For more details regarding further plans, please refer to the orders. DIDIER FOSTER MD Aug 09, 2019 10:25
[2019-08-09] MEDS ORDERED: POTASSIUM CHLORIDE 20 MEQ TABLET.ER. PO ONE (11:00)
[2019-08-09 11:25] VITALS: BP_SYST 133; BP_SYST 142; BP_DIAS 65; BP_DIAS 67
[2019-08-09 13:54] VITALS: BP 142/67
--- NOTE | 2019-08-09 16:00 | NUR ---
Discharge Note: RODO ESTEBAN Discharge instructions and discharge home medications reviewed with Patient and a copy given. All questions have been answered and understanding verbalized. The following instructions and handouts were given: torosemide Patient discharged to home or self care with family member via wheelchair
--- NOTE | 2019-08-11 11:21 | HP ---
ADMIT DATE: 08/07/2019 REASON FOR ADMISSION TO THE HOSPITAL: Leg swelling, shortness of breath, possible heart failure. HISTORY OF PRESENT ILLNESS: The patient is an 79-year-old female patient who has a history of hypertension, chronic kidney disease stage 2. She was having shortness of breath as well as swelling of lower extremities, was seen in the office, was admitted to the hospital. She was given IV Lasix. She had a Doppler of lower extremities negative for DVT. She had a chest x-ray which showed mild cardiomegaly. CT scan showed some ground-glass opacities in the left lower lobe. PAST MEDICAL HISTORY: Hypertension, hyperlipidemia, TIA, GERD, fibromyalgia, low back pain, borderline diabetes, and chronic kidney disease stage 2 and 3. PAST SURGICAL HISTORY: Breast biopsy, gallbladder surgery, and hysterectomy. FAMILY HISTORY: Hypertension. SOCIAL HISTORY: No stairs. Ex-smoker in the past. No alcohol, no drugs. ALLERGIES: CODEINE CAUSES NAUSEA. MEDICATIONS AT HOME: The patient is on oxycodone 10 mg for pain, Carafate 1 g twice a day, propranolol 40 mg 3 times a day, Protonix 40 mg daily, vitamin D 50,000 weekly, aspirin 81 mg daily, atorvastatin 20 mg daily, Xalatan eyedrops daily, Lyrica 75 mg twice a day, Flonase daily, allopurinol 300 mg daily, levothyroxine 75 mcg daily, and potassium 20 mEq. REVIEW OF SYSTEMS: CARDIAC: No chest pain. GASTROINTESTINAL: No nausea or vomiting. EXTREMITIES: Only swelling in lower extremities. PHYSICAL EXAMINATION: VITAL SIGNS: At the time of admission shows a temperature 98, pulse 70, respirations 18, blood pressure 112/62, and oxygen saturation 95 on room air. HEENT: Head is atraumatic. Pupils equal. Oral cavity: No congestion. NECK: Supple. Thyroid not enlarged. JVD not elevated. CHEST: Symmetrical. CARDIOVASCULAR: S1, S2. LUNGS: Few crackles at the bases. ABDOMEN: Soft, no mass palpable. GENITALIA: External genitalia, no Ac. RECTAL: Deferred. EXTREMITIES: There is 2+ edema mostly on the left, 1+ on the right. NEUROLOGIC: No focal deficit. Moving all extremities. LABORATORY DATA: Shows a white count of 6, hemoglobin 11, platelets 157. Electrolytes show sodium of 147, potassium 3.7, chloride 104, bicarbonate 33, anion gap 10, BUN 41, creatinine 1.8, glucose 98. BNP 61. Troponin was negative. A1c is 6.8. Direct bilirubin 0.9. Lipid, 81 total cholesterol. Carotid Doppler negative for DVT. She has a left popliteal fossa cyst 5 x 1.5 cm. Chest x-ray shows atelectasis. CT chest shows ground glass opacities, left lower lobe and lingula, less than 4-mm lung nodules. Echocardiogram was done, report is pending. FINAL IMPRESSION: 1. New onset of swelling of lower extremities, possible heart failure.Diastolic. 2. Hypertension. 3. Hyperlipidemia. 4. Borderline diabetes. 5. Chronic kidney disease. 6. Fibromyalgia. PLAN: At this time, the patient did improve with IV Lasix, elevation. Orthopedic consult for popliteal cyst. Echo was done. Cardiology was consulted and the patient's condition clinically improved with the diuretics. Continue medical management. ALEXIS WILSON MD DR: DOREEN/cammie JOB#: [id number] / [id number] KAI
--- NOTE | 2019-08-11 11:24 | CARD ---
MR#: [id number] Date of Study: 08/08/2019 Ordering Physician: ALEXIS WILSON, Referring Physician: ALEXIS WILSON, Tech: Viola Enamorado [facility] APPROVED REPORT EXAM: Two-dimensional and M-mode echocardiogram with Doppler and color Doppler. Other Information Quality : AverageHR: 64bpm Rhythm : NSR INDICATION Congestive Heart Failure 2D DIMENSIONS RVDd2.5 (2.9-3.5cm)Left Atrium(2D)3.5 (1.6-4.0cm) IVSd0.9 (0.7-1.1cm)Aortic Root(2D)2.8 (2.0-3.7cm) LVDd3.9 (3.9-5.9cm)LVOT Diameter1.7 (1.8-2.4cm) PWd1.0 (0.7-1.1cm)LVDs2.3 (2.5-4.0cm) FS (%) 40.0 %SV47.1 ml Aortic Valve AoV Peak Tony.133.8cm/sAoV VTI30.1cm AO Peak GR.7.2mmHgLVOT Peak Tony.89.7cm/s AO Mean GR.4mmHgAVA (VMAX)1.60cm2 [place] (VTI)1.70cm2 Mitral Valve MV E Lowoqkem35.4cm/sMV DECEL [id number] MV A Ykqmrorj303.5cm/sE/A Ratio0.9 Pulmonary Valve PV Peak Vzkjpezu07.0cm/s Tricuspid Valve TR P. Fgdvieds721ef/sRAP [id number] TR Peak Gr.[id number] Pulmonary Vein S1 Bsofngaw71.8cm/sD2 Trouwagg42.8cm/s PVa [id number] LEFT VENTRICLE The left ventricle is normal size. There is borderline concentric left ventricular hypertrophy. The l eft ventricular systolic function is normal and the ejection fraction is within normal range. The Eje ction Fraction is 60-65%. There is normal LV segmental wall motion. Transmitral Doppler flow pattern is Grade I-abnormal relaxation pattern. RIGHT VENTRICLE The right ventricle is normal size. There is normal right ventricular wall thickness. The right ventr icular systolic function is normal. ATRIA The left atrium size is normal. The right atrium size is normal. The interatrial septum is intact wit h no evidence for an atrial septal defect or patent foramen ovale as noted on 2-D or Doppler imaging. AORTIC VALVE The aortic valve is normal in structure and function. The aortic valve is trileaflet. Doppler and Col or Flow revealed no significant aortic regurgitation. There is no significant aortic valvular stenosi s. There is no aortic valvular vegetation. MITRAL VALVE The mitral valve is thickened but opens well. There is no evidence of mitral valve prolapse. There is no mitral valve stenosis. Doppler and Color-flow revealed mild mitral regurgitation. TRICUSPID VALVE The tricuspid valve is normal in structure and function. Doppler and Color Flow revealed trace tricus pid regurgitation. The PA pressure was estimated at 32 mmHg. There is no tricuspid valve prolapse or vegetation. There is no tricuspid valve stenosis. PULMONIC VALVE The pulmonic valve is not well visualized. GREAT VESSELS The aortic root is normal in size. The ascending aorta is normal in size. The IVC is normal in size a nd collapses >50% with inspiration. PERICARDIAL EFFUSION There is no evidence of significant pericardial effusion. Critical Notification Critical Value: No <Conclusion> The left ventricle is normal size. The left ventricular systolic function is normal and the ejection fraction is within normal range. The Ejection Fraction is 60-65%. There is borderline concentric left ventricular hypertrophy. There is no significant aortic valvular stenosis. Doppler and Color Flow revealed no significant aortic regurgitation. Doppler and Color-flow revealed mild mitral regurgitation. Doppler and Color Flow revealed trace tricuspid regurgitation. The PA pressure was estimated at 32 mmHg. Signed by : Dayne Castaneda MD Electronically Approved : 08/08/2019 15:04:21
[2019-08-13] MEDS ORDERED: ERGOCALCIFEROL (VITAMIN D2) 50,000 UNIT CAPSULE. PO SCH (09:00)
--- NOTE | 2019-08-13 16:56 | PDOC ---
Provider Note Provider Note Discharge summary dictated.#[id number]. ALEXIS WILSON MD Aug 13, 2019 16:56
--- NOTE | 2019-08-13 17:40 | DS ---
DATE OF DISCHARGE: 08/09/2019 CONSULTATION: Dr. Jean. PROCEDURES DONE: 1. Echocardiogram. 2. Venous Doppler. HOSPITAL COURSE: The patient is an 79-year-old female with history of hypertension, developed swelling of lower extremities, was admitted to the hospital for new onset of congestive heart failure, had venous Doppler negative for DVT. He had left Griffin cyst 4 cm. The patient's echocardiogram shows ejection fraction 65%, left ventricular hypertrophy and the patient was given IV Lasix and her condition improved, seen by Cardiology and on the whole, the patient's condition improved and she was discharged on Demadex twice a day and potassium. Recheck labs in 1 week. FINAL DIAGNOSES: 1. New onset of congestive heart failure. 2. Diastolic heart failure secondary to hypertension. 3. Hypertension. 4. Griffin cyst left knee and chronic fibromyalgia. 5. Mild kidney disease, creatinine 1.8, it came down to 1.4 at the time of discharge. Vasomotor cause. ALEXIS WILSON MD DR: DOREEN/cammie JOB#: [id number] / [id number] KAI
== END 2019-08-09 16:10 | disposition home or self-care (01) | DRG 291 ==
LOC: 2 NORTH 17:46
PROVIDERS: ADMIT Internal Medicine; ATTEND Internal Medicine
DX: I13.0 Hypertensive heart and chronic kidney disease with heart failure and stage 1 through stage 4 chronic kidney disease, or unspecified chronic kidney disease (principal); N17.0 Acute kidney failure with tubular necrosis; I50.31 Acute diastolic (congestive) heart failure; E87.0 Hyperosmolality and hypernatremia; E11.22 Type 2 diabetes mellitus with diabetic chronic kidney disease; E78.5 Hyperlipidemia, unspecified; K21.9 Gastro-esophageal reflux disease without esophagitis; M17.0 Bilateral primary osteoarthritis of knee; M79.7 Fibromyalgia; G89.29 Other chronic pain; N18.3 Chronic kidney disease, stage 3 (moderate); Z82.49 Family history of ischemic heart disease and other diseases of the circulatory system; Z86.73 Personal history of transient ischemic attack (TIA), and cerebral infarction without residual deficits; Z90.710 Acquired absence of both cervix and uterus; Z87.891 Personal history of nicotine dependence; Z88.8 Allergy status to other drugs, medicaments and biological substances
CPT/HCPCS: 36415; 71045; 71250; 80048; 80053; 80061; 82962; 83036; 83690; 83880; 84443; 84484; 85025; 90471; 90686; 93005; 93306; 93970; 94640; J1650; J1940; J7620; 97116; 97530; G0378